=== PATIENT | male | born 1950 | race Caucasian/White ===

== ENCOUNTER 2017-02-25 17:10 | Emergency (ER) | payer BC, MEDICARE ==
[2017-02-25] MEDS ORDERED: HYDROmorphone 1 MG/ML Syringe IVPUSH ONE (17:32)
[2017-02-25] MEDS ORDERED: Ondansetron 4 MG/2 ML SDV IVPUSH ONE (17:32)
--- NOTE | 2017-02-25 17:47 | EDM.PDOC ---
ED HPI GI/ABDOMINAL - General Chief Complaint: Abdominal Pain Stated Complaint: RIGHT SIDE PAIN Time Seen by Provider: 02/25/17 17:20 Source of Information: Reports: Patient History Limitations: Reports: No limitations - History of Present Illness INITIAL COMMENTS - FREE TEXT/NARRATIVE: PT STATES HE HAS HAD INTERMITTENT ABD PAIN OVER PAST MOTH BUT WORSE TODAY. NOW N /V AND INCREASE IN INTENSITY. H/O RENAL TRANSPLANT AND ON REJECTION MEDS. URINE SAID TO BE DARKER THAN USUAL. DENIES TRAUMA, CP, SOB, FEVER. Timing/Duration: Reports: Week(s): Location: suprapubic Quality: Reports: ache, cramping Severity: moderate Improves with: Reports: other (NONE) Worsens with: Reports: lying down Associated Symptoms: Reports: nausea/vomiting. Denies: chest pain, testicular pain, constipation, diarrhea, bloody stools, fever/chills - Related Data Allergies/ADRs: Allergies Allergy/AdvReac Type Severity Reaction Status Date / Time metoprolol Allergy Other Verified 02/25/17 18:30 Home Meds: Home Meds Cyanocobalamin (Vitamin B-12) [Vitamin B-12] 1,000 mcg PO Q30D 12/29/13 [History ] Docusate Sodium [Colace] 100 mg PO BID 12/29/13 [History] Mycophenolate Mofetil [Cellcept] 500 mg PO BID 12/29/13 [History] Tacrolimus [Prograf] 1.5 mg PO BID 12/29/13 [History] predniSONE 10 mg PO DAILY 12/29/13 [History] Aspirin 325 mg PO DAILY 11/27/15 [History] Beclomethasone Dipropionate [Qvar] 40 mcg INH BID 11/27/15 [History] DULoxetine [Cymbalta] 60 mg PO BEDTIME 11/27/15 [History] Esomeprazole [NexIUM] 40 mg PO BEDTIME 11/27/15 [History] Hydrocodone/Acetaminophen [[place] 10-325 Tablet] 1 each PO TID PRN 11/27/15 [ History] Menthol [Biofreeze] 1 applic TOP TID PRN 11/27/15 [History] Nitroglycerin [Nitrostat] 0.4 mg SL Q5M 11/27/15 [History] Warfarin [Coumadin] 2.5 mg PO DAILY 11/27/15 [History] amLODIPine Besylate [Norvasc] 2.5 mg PO DAILY 11/27/15 [History] Pramipexole Di-HCl [Mirapex] 0.125 mg PO BEDTIME 02/25/17 [History] Past Medical History Cardiovascular History: Reports: [place] Other Cardiovascular History: carotid stenosis Gastrointestinal History: Reports: GERD, PUD Genitourinary History: Reports: Renal disease, Other (see below) Other Genitourinary History: 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 18 years ago had kidney failure due to hypertension and had a kidney transplant. Musculoskeletal History: Reports: Back pain, chronic Other Musculoskeletal History: left rotator cuff tear Neurological History: Reports: CVA Other Neuro History: CVA May 13 2015 Endocrine/Metabolic History: Reports: Osteoporosis Other Endocrine/Metabolic History: chronic renal insufficiency history of kidney transplant Immunologic History: Reports: Solid organ transplant Oncologic (Cancer) History: Reports: Other (see below) Other Oncologic History: skin Other Dermatologic History: skin cancer - Past Surgical History Cardiovascular Surgical History: Reports: Other (see below) Other Cardiovascular Surgeries/Procedures: ablation in August 2015 in [place] GI Surgical History: Reports: Hernia repair/other Other GI Surgeries/Procedures: hernia repair over kidney transplant site in right lower abdomen in 2007. Musculoskeletal Surgical History: Reports: Other (see below) Other Musculoskeletal Surgeries/Procedures:: surgery on C7 Dermatological Surgical History: Reports: Skin biopsy Social & Family History - Tobacco Use Smoking Status *Q: Former Smoker Years of Tobacco use: 5 Packs/Tins Daily: 1 Used Tobacco, but Quit: No Month Tobacco Last Used: March Second Hand Smoke Exposure: Yes - Alcohol Use Days Per Week of Alcohol Use: 0 - Recreational Drug Use Recreational Drug Use: No Drug Use in Last 12 Months: No Recreational Drug Type: Reports: Marijuana/Hashish - Living Situation & Occupation Occupation: disabled ED ROS GENERAL - Review of Systems Review Of Systems: ROS reveals no pertinent complaints other than HPI. Constitutional: Reports: no symptoms HEENT: Reports: No symptoms Respiratory: Reports: No Symptoms Cardiovascular: Reports: No symptoms Endocrine: Reports: no symptoms GI/Abdominal: Reports: Abdominal pain, Nausea, Vomiting : Reports: other (DARK URINE) Skin: Reports: no symptoms Neurological: Reports: No Symptoms Psychiatric: Reports: No symptoms Hematologic/Lymphatic: Reports: no symptoms Immunologic: Reports: no symptoms ED EXAM, GI/ABD - Physical Exam Exam: See Below Exam Limited By: No limitations General Appearance: alert, WD/WN, no apparent distress Eyes: bilateral: normal appearance Nose: normal inspection, normal mucosa, no blood Throat/Mouth: Normal inspection, Normal oropharynx, No airway compromise Head: atraumatic, normocephalic Neck: normal inspection Respiratory/Chest: no respiratory distress, lungs clear, normal breath sounds, no accessory muscle use, chest non-tender Cardiovascular: regular rate, rhythm, no murmur GI/Abdominal: normal bowel sounds, soft, tenderness (SUPRAPUBIC) (Male) Exam: No hernia, Normal inspection Back Exam: normal inspection. No: CVA tenderness (L), CVA tenderness (R) Extremities: normal inspection, no pedal edema Neurological: alert, oriented, normal cognition Psychiatric: normal affect, normal mood Skin Exam: Warm, Dry, Intact, Normal color, No rash Lymphatic: no adenopathy Course - Vital Signs Last Recorded V/S: Last Vital Signs Temp 98.1 F 02/25/17 17:22 Pulse 60 02/25/17 17:22 Resp 22 H 02/25/17 17:22 BP 150/92 H 02/25/17 17:22 Pulse Ox 99 02/25/17 17:22 - Orders/Labs/Meds Orders: Active Orders 24 hr Category Date Time Status Abdomen Pelvis wo Cont [CT] Stat Exams 02/25/17 17:30 Ordered Chest 2V [CR] Stat Exams 02/25/17 17:30 Ordered CBC WITH AUTO DIFF [HEME] Stat Lab 02/25/17 17:30 Ordered COMPREHENSIVE METABOLIC PN,CMP [CHEM] Stat Lab 02/25/17 17:30 Ordered UA W/MICROSCOPIC [URIN] Stat Lab 02/25/17 17:30 Uncollected HYDROmorphone [Dilaudid] Med 02/25/17 17:32 Once 1 mg IVPUSH ONETIME ONE Ondansetron [Zofran] Med 02/25/17 17:32 Once 4 mg IVPUSH ONETIME ONE - Radiology Interpretation Free Text/Narrative:: CXR SHOWS NO ACUTE PROCESS / CT ABD PELVIS SHOWS FISTULA BETWEEN SIGMOID COLON AND SMALL BOWEL WITH INFLAMMATION CT Results Date: 02/25/17 - Re-Assessments/Exams Free Text/Narrative Re-Assessment/Exam: 02/25/17 19:25 PT AFEBRILE, NONTOXIC APPEARING. DISCUSSED CASE WITH DR RODRIGUEZ. SUGGESTED ADMITTING PT. HOWEVER, THE PT IS REFUSING IV ABX TREATMENT AND WILL NOT ACCEPT ADMISSION. PT STATES HE WILL F/U AT [facility] TOMORROW. UNABLE TO CONVINCE PT OR TO SEVERITY OF DECISION. 02/25/17 19:29 02/25/17 19:29 Departure - Departure Time of Disposition: 19:29 Disposition: Against Medical Advice 07 Condition: fair Clinical Impression: Fistula of intestine, excluding rectum and anus Abdominal pain Qualifiers: Abdominal location: lower abdomen, unspecified Qualified Code(s): R10.30 - Lower abdominal pain, unspecified Instructions: Abdominal Pain, Adult, [id number] Forms: ED Department Discharge Additional Instructions: FOLLOW UP AT [facility] [place] TOMORROW. RETURN TO ER IS SYMPTOMS PERSIST - My Orders Last 24 Hours: My Active Orders 02/25/17 17:30 Abdomen Pelvis wo Cont [CT] Stat Chest 2V [CR] Stat CBC WITH AUTO DIFF [HEME] Stat COMPREHENSIVE METABOLIC PN,CMP [CHEM] Stat UA W/MICROSCOPIC [URIN] Stat 02/25/17 17:32 HYDROmorphone [Dilaudid] 1 mg IVPUSH ONETIME ONE Ondansetron [Zofran] 4 mg IVPUSH ONETIME ONE - Assessment/Plan Last 24 Hours: My Active Orders 02/25/17 17:30 Abdomen Pelvis wo Cont [CT] Stat Chest 2V [CR] Stat CBC WITH AUTO DIFF [HEME] Stat COMPREHENSIVE METABOLIC PN,CMP [CHEM] Stat UA W/MICROSCOPIC [URIN] Stat 02/25/17 17:32 HYDROmorphone [Dilaudid] 1 mg IVPUSH ONETIME ONE Ondansetron [Zofran] 4 mg IVPUSH ONETIME ONE Assessment:: ABD PAIN / COLON FISTULA Plan: PT LEFT AMA
[2017-02-25 18:41] VITALS: BP 136/66
== END 2017-02-25 19:38 | disposition left against medical advice (07) ==
LOC: KA.ED 17:10 → SUPCPDRO 17:10 → KA.ED 19:38
DX: K63.2 Fistula of intestine (principal); Z88.8 Allergy status to other drugs, medicaments and biological substances; Z79.01 Long term (current) use of anticoagulants; Z79.899 Other long term (current) drug therapy; K21.9 Gastro-esophageal reflux disease without esophagitis; N18.9 Chronic kidney disease, unspecified; Z94.0 Kidney transplant status; Z86.73 Personal history of transient ischemic attack (TIA), and cerebral infarction without residual deficits; M81.0 Age-related osteoporosis without current pathological fracture; Z87.891 Personal history of nicotine dependence; Z53.21 Procedure and treatment not carried out due to patient leaving prior to being seen by health care provider
CPT/HCPCS: 71020; 74176; 80053; 81001; 85025; J1170; J2405; 96374; 96375; 99284